=== PATIENT | male | born 2005 | race Caucasian/White ===

== ENCOUNTER 2025-04-25 18:06 | Emergency (ER) | payer OTHER, SELFPAY ==
[2025-04-25] VITALS (7 sets, daily range): BP systolic 126–139; BP diastolic 65–91; PULSE 102–113; RESP 12–22; TEMP 37.3; O2SAT 99–100
--- NOTE | ~2025-04-25 | XR_ITS ---
EXAMINATION: XR chest 1V portable 04/25/2025 20:08 INDICATION: Chest pain and palpitations PROCEDURE: AP portable chest COMPARISON: No prior studies for comparison. FINDINGS: The lungs are clear. The cardiomediastinal silhouette is within normal limits. There are no pleural effusions. There is no pneumothorax suspected. IMPRESSION: 1: NO ACUTE CARDIOPULMONARY DISEASE. Reviewed, dictated and finalized at location O.
--- NOTE | 2025-04-25 18:08 | ECG_ITS ---
Test Date: 2025-04-25 18:13:17 Measurements Intervals Forest Rate: 125 P: 61 SD: 112 QRS: 83 QRSD: 90 T: 41 QT: 303 QTc: 438 Interpretive Statements SINUS TACHYCARDIA ABNORMAL RHYTHM ECG No previous ECG available for comparison Electronically Signed On 04-26-2025 10:46:08 CDT by Giorgio Reid M.D.
--- OUTSIDE RECORDS SUMMARY | 2025-04-25 18:09 | XMS_ITS | Encounter Summary ---
Author Organization [facility] Address [address] [place] [address] Care Team Providers Care Hair Weaver Name Role Phone David Garcia MD Primary Care Provider [phone] Reason for Visit * Reason Onset Date Comments Appointment 04/24/2025 Encounter Details Date Type Department Care Team (Late st Contact Info) Description 04/24/2025 Telephone [facility] - General Dermatology [address], [facility] [address] [place] [address] Enrike Dinh, PAKoC [address] [facility] [address] [place] [address] Appointment Social History Tobacco Use Types Packs/Day Years Used Date Smoking Tobacco: Passive Smo ke Exposure - Never Smoker Smokeless Tobacco: Never Alcohol Use Standard Drinks/Week Comments No 0 (1 standard drink = 0.6 oz pur e alcohol) Sex and Gender Information Value Date Recorded Sex Assigned at Not on file Legal Sex Male 2:15 PM [employer] Gender Identity Not on file Sexual Orientation Not on file documented as of this encounter Miscellaneous Notes * Telephone Encounter - Noah Gold - 04/24/2025 12:00 PM CDT Patient called left a detailed voicemail for patient or mom (Hope) to give me a call back regarding scheduling patch testing. Noah Gold documented in this encounter Plan of Treatment Upcoming Encounters Date Type Department Care Team (Late st Contact Info) Description 07/03/2025 2:00 PM [employer] Office Visit [facility] - General Dermatology [address], [place] [address] [place] [address] Enrike Dinh PAKoC [address] [facility] [address] [place] [address] documented as of this encounter Visit Diagnoses Not on filedocumented in this encounter Care Teams Hair Weaver Relationship Specialty Start Date End Date David Garcia MD [address] [address] PCP - General 11/03/11 documented as of this encounter
--- OUTSIDE RECORDS SUMMARY | 2025-04-25 18:09 | XMS_ITS | Patient Health Record ---
Author Organization [facility] Address [address] [place] [address] Care Team Providers Care Sap Analyst Name Role Phone Joanne Edmond Primary Care Provider Allergies Allergen (clinical drug ingredient) Drug/Non Drug Allergy documented on EMR Reaction Allergy Type Onset Date Status cat dander allergenic extract / cat skin extract Cat Hair Extract shortness of breath Drug Allergy Active Reason For Referral Reason Client is looking fo r assistance with SSDI, we have disclosure to speak with momHope Randolph Diagnosis 1 Autism spectrum diso rder (F84.0) Diagnosis 2 Attention deficit hy peractivity disorder (ADHD), combined type (F90.2) Referral Organization [facility] Referring Provider First Name Joanne Referring Provider Last Name Mayito Referring Provider Speciality Psychiatry Referred Provider Specialty Operating Engineer ApprenticePlanning Management It Specialist Notes Form TE sent by pamela abreur: This client is a 19 year old male with autism spectrum and adhd. He has never been on disability before and mom is trying to help him get put on disability given the fact that client will have a very difficult time ever holding down a full- time job. She has tried to go through this process and is not having much luck. She stated she has a court date coming up about this and was wondering if anyone here had any resources or guidance for her on the process or how to go about finding him a employer relations representative. I told her that I could ask one of our navigators for any help they may be able to give. There is a release on file for mom that Levy has signed. Thanks. Clinical Notes Doreen Bailey 01/29/2025 10:35:52 AM >HN spoke to the mother of Levy. Levy has a release for his mother. They are due to attend court in the next 75 days to fight an appeal from disability. CAITANGELICA is texting Mrs. Dickson her contact number, and additionally is emailing Joellen at [facility] to see if they can complete an intake to assist the client during the appeal process. Email being sent to Joellen on 01-29-25 and hopefully CAIT will receive a response that the client is eligible for legal assistance for his last court case. Referral Priority Routine Medications Medication SIG (Take, Route, Fr equency, Duration) Notes Start Date End Date Status buPROPion HCl 75 MG 1 tablets Orally in AM; Duration: 30 days Active Strattera 80 MG 1 capsule in the mor facundo Orally Once a day; Duration: 30 days Ac tive cloNIDine HCl 0.1 MG 1 tablet Orally at bed; Duration: 30 days Active SEROquel 100 MG 1.5 tablet Orally at bed; Duration: 30 days Active Social History Tobacco Use: Social History Observation Description Date Details (start date - stop date) Never Smoker NA - NA Sex Assigned At : Social History Observation Description Sex Assigned At Male Tobacco Control (Standard) Question Answer Notes Tobacco use: Nonsmoker Problems Problem Type SNOMED Code ICD Code Onset Dates Problem Status W/U Status Risk Notes Problem Autism spectrum disorder (37008418) Autism spectrum disorder (F84.0) Active confirmed Problem Attention deficit hyperactivity disorder (151820751) Attention deficit hyperactivity disorder (ADHD), combined type (F90.2) Active confirmed Problem Overweight (502695185) Over weight (E66.3) Active confirmed Vital Signs Heart Rate 117 /min 03/12/2025 Temperature 97.9 degrees Fahrenheit 01/22/2025 Respiratory Rate 20 /min 03/12/2025 Blood pressure diastolic 72 mm Hg 03/12/2025 Oximetry 100 % 03/12/2025 Height 68 in 03/12/2025 Blood pressure systolic 124 mm Hg 03/12/2025 Weight 172.2 lbs 03/12/2025 BMI 26.18 kg/m2 03/12/2025 Encounters Encounter Location Date Provider Diagnosis [address] [place] [address] 07/23/2024 Joanne Edmond Body mass index (BMI ) pediatric, 5th percentile to less than 85th percentile for age Z68.52 ; Autism spectrum disorder F84.0 ; Nutritional counseling Z71.3 ; Exercise counseling Z71.82 and Attention deficit hyperactivity disorder (ADHD), combined type F90.[address] [place] [address] 10/22/2024 Joanne Edmond Body mass index (BMI ) pediatric, 5th percentile to less than 85th percentile for age Z68.52 ; Autism spectrum disorder F84.0 ; Nutritional counseling Z71.3 ; Exercise counseling Z71.82 and Attention deficit hyperactivity disorder (ADHD), combined type F90.[address] [place] [address] 11/26/2024 Joanne Edmond Body mass index (BMI ) pediatric, 5th percentile to less than 85th percentile for age Z68.52 ; Autism spectrum disorder F84.0 ; Nutritional counseling Z71.3 ; Exercise counseling Z71.82 and Attention deficit hyperactivity disorder (ADHD), combined type F90.[address] [address] 12/24/2024 Joanne Edmond Body mass index (BMI ) pediatric, 5th percentile to less than 85th percentile for age Z68.52 ; Autism spectrum disorder F84.0 ; Nutritional counseling Z71.3 ; Exercise counseling Z71.82 and Attention deficit hyperactivity disorder (ADHD), combined type F90.2 [address] [place] [address] 01/22/2025 Joanne Edmond Body mass index (BMI ) pediatric, 5th percentile to less than 85th percentile for age Z68.52 ; Autism spectrum disorder F84.0 ; Nutritional counseling Z71.3 ; Exercise counseling Z71.82 and Attention deficit hyperactivity disorder (ADHD), combined type F90.2 [facility] [place] [address] 02/12/2025 Joanne Edmond Over weight E66.3 ; Autism spectrum disorder F84.0 ; Nutritional counseling Z71.3 ; Exercise counseling Z71.82 and Attention deficit hyperactivity disorder (ADHD), combined type F90.2 [address] [place] [address] 03/12/2025 Joanne Edmond Over weight E66.3 ; Autism spectrum disorder F84.0 ; Nutritional counseling Z71.3 ; Exercise counseling Z71.82 and Attention deficit hyperactivity disorder (ADHD), combined type F90.[address] [address] 10/14/2024 Joanne Edmond [address] [address] 11/26/2024 Joanne Edmond [facility] [address] [place] [address] 12/18/2024 Joanne Edmond Attention deficit hyperactivity disorder (ADHD), combined type F90.[address] [place] [address] 01/01/2025 Joanne Edmond [address] [address] 01/16/2025 Joanne Edmond [facility] [address] [address] 02/04/2025 Joanne Edmond Assessments Encounter Date Diagnosis (ICD Code) Assessment Notes Treatment Notes Treatment Clinical Notes Section Notes 07/23/2024 Body mass index (BMI) pediatric, 5th percentile to less than 85th percentile for age (ICD-10 - Z68.52) 10/22/2024 Body mass index (BMI) pediatric, 5th percentile to less than 85th percentile for age (ICD-10 - Z68.52) 11/26/2024 Body mass index (BMI) pediatric, 5th percentile to less than 85th percentile for age (ICD-10 - Z68.52) 12/18/2024 Attention deficit hyperactivity disorder (ADHD), combined type (ICD-10 - F90.2) 12/24/2024 Body mass index (BMI) pediatric, 5th percentile to less than 85th percentile for age (ICD-10 - Z68.52) 01/22/2025 Body mass index (BMI) pediatric, 5th percentile to less than 85th percentile for age (ICD-10 - Z68.52) 02/12/2025 Over weight (ICD-10 - E66.3) 03/12/2025 Over weight (ICD-10 - E66.3) 02/12/2025 Autism spectrum disorder (ICD-10 - F84.0) 03/12/2025 Autism spectrum disorder (ICD-10 - F84.0) 01/22/2025 Autism spectrum disorder (ICD-10 - F84.0) 12/24/2024 Autism spectrum disorder (ICD-10 - F84.0) 11/26/2024 Autism spectrum disorder (ICD-10 - F84.0) 10/22/2024 Autism spectrum disorder (ICD-10 - F84.0) 07/23/2024 Autism spectrum disorder (ICD-10 - F84.0) 07/23/2024 Nutritional counseling (ICD-10 - Z71.3) 12/24/2024 Nutritional counseling (ICD-10 - Z71.3) 10/22/2024 Nutritional counseling (ICD-10 - Z71.3) 11/26/2024 Nutritional counseling (ICD-10 - Z71.3) 01/22/2025 Nutritional counseling (ICD-10 - Z71.3) 02/12/2025 Nutritional counseling (ICD-10 - Z71.3) 03/12/2025 Nutritional counseling (ICD-10 - Z71.3) 03/12/2025 Exercise counseling (ICD-10 - Z71.82) 02/12/2025 Exercise counseling (ICD-10 - Z71.82) 12/24/2024 Exercise counseling (ICD-10 - Z71.82) 11/26/2024 Exercise counseling (ICD-10 - Z71.82) 01/22/2025 Exercise counseling (ICD-10 - Z71.82) 10/22/2024 Exercise counseling (ICD-10 - Z71.82) 07/23/2024 Exercise counseling (ICD-10 - Z71.82) 07/23/2024 Attention deficit hyperactivity disorder (ADHD), combined type (ICD-10 - F90.2) 10/22/2024 Attention deficit hyperactivity disorder (ADHD), combined type (ICD-10 - F90.2) 11/26/2024 Attention deficit hyperactivity disorder (ADHD), combined type (ICD-10 - F90.2) 12/24/2024 Attention deficit hyperactivity disorder (ADHD), combined type (ICD-10 - F90.2) 01/22/2025 Attention deficit hyperactivity disorder (ADHD), combined type (ICD-10 - F90.2) 02/12/2025 Attention deficit hyperactivity disorder (ADHD), combined type (ICD-10 - F90.2) 03/12/2025 Attention deficit hyperactivity disorder (ADHD), combined type (ICD-10 - F90.2) 01/22/2025 Other Patient may self-administer their own medications or may self-administer their own oral medications per [place] Protocol. 02/12/2025 Other Patient may self-administer their own medications or may self-administer their own oral medications per [place] Protocol. 03/12/2025 Other Patient may self-administer their own medications or may self-administer their own oral medications per [place] Protocol. Plan Of Treatment Next Appt Details Provider Name:Joanne Edmond, 05/06/2025 11:00:00 AM, [address] [facility] , [place], [address], Insurance Providers Payer Name Payer Address Payer Phone Subscriber Number Group Number Insured Name Patient Relationship to Insured Coverage Start Date Coverage End Date [facility] Att Claims Department [address] [place] [address] [id number] Levy Espitia Self - patient is the insured 0 [facility] [address] [address] [place] [address] [id number] Levy Espitia Self - patient is the insured 5 8 Medical (General) History Medical History History ICD Code Asthma ADHD Autism spectrum disorder Surgical History Surgery Date(Month/Year) tonsils and adenoids removed 2010 Hospitalization History Reason Date(Month/Year) [facility] - behavioral issues 2007 [facility] - behavioral issues 2010 [facility] - behavioral issues 06/2015
--- OUTSIDE RECORDS SUMMARY | 2025-04-25 18:09 | XMS_ITS | Clinical Summary ---
Author Organization [facility] Address [address] [place] [address] Care Team Providers Care Deputy Fire Marshal Name Role Phone David Garcia MD Primary Care Provider [phone] Source Comments [facility],non-owned Affiliates and Associated Physician Practices is amultiple site organization consisting of ambulatory clinics and hospital sitesin [place], [place], [place] and [place]. This disclosure is being madepursuant to the Care Everywhere program and may not contain all information available regarding this patient. Last updated 18.[facility] Allergies No known active allergies Medications * This document contains information received from the source organization and may not represent a complete record from that organization. * Be aware that medications may not be up to date on this document. Alwaysverify current medications with the patient. OXcarbazepine (TRILEPTAL) 600 MG tabletIndication s:decreased to 200mg in june per mother Take 200 mg by mouth once daily Reasons: decreased to 200mg in june per mother Active QUEtiapine (SEROQUEL) 200 MG tablet Take 200 mg by mouth at bedtime 20 or 25mg seroquel in the morning as well per mother Active atomoxetine (STRATTERA) 40 MG capsule Take 40 mg by mouth every morning. Active montelukast (SINGULAIR) 5 MG chew tablet Take 1 Tab by mouth every evening. 30 Tab 5 3 Active Additional Information Patient not taking.Reported on 04/04/2025 fluticasone hfa 110 (FLOVENT HFA 110) 110 MCG/ACT inhaler Inhale 2 Puffs by mouth 2 times daily. 1 Inhaler 2 3 Active Spacer/Aero-Hold ing Chambers KIT Use 1 Device as directed. 1 Kit 0 4 Active albuterol HFA (PROVENTIL;HENRIETTA PAUL;PROAIR) 108 (90 BASE) MCG/ACT inhaler Inhale 4 Puffs by mouth every 4 hours as needed for Shortness of Breath, Wheezing or Cough 2 Inhaler 0 6 Active albuterol (PROVENTIL;HENRIETTA PAUL) (5 MG/ML) 0.5% nebulizer solution Inhale 0.5 mL by mouth every 4 hours as needed for Shortness of Breath or Wheezing 1 Box 0 6 Active buPROPion (Wellbutrin) 75 MG tablet 5 Active cloNIDine (Catapres) 0.1 MG tablet 5 Active fluocinonide (Lidex) 0.05 % solutionIndicati ons:Rash and other nonspecific skin eruption,Other seborrheic dermatitis Apply to affected scalp twice daily, avoid face. 30 days supply. 40 mL 3 5 Active ketoconazole (Nizoral) 2 % shampooIndicatio ns:Other seborrheic dermatitis Apply to wet hair and face, leave on for 3 minutes, then rinse; three times weekly. 30 days supply 120 mL 5 5 Active tacrolimus (Protopic) 0.1 % ointmentIndicati ons:Rash and other nonspecific skin eruption,Other seborrheic dermatitis Apply to affected skin two times daily on face, armpits, groin as needed. 30 days supply. 60 g 3 5 Active triamcinolone acetonide (Kenalog) 0.1 % ointmentIndicati ons:Rash and other nonspecific skin eruption Apply to affected area 2 times daily Use as needed. Avoid face, armpits, groin 80 g 2 5 Active Active Problems Problem Noted Date Diagnosed Date Asthma exacerbation 09/19/2012 Overview (09/28/2012): 7 yo male with h/o asthma presented with 1 day h/o wheezing and increased work of breathing. No history of fevers or sick contacts. Received continuous nebs x2 in ED in addition to Atrovent,and Orapred. Required additional O2 support. Admitted with albuterol treatment per [facility]. Flovent 44 BID continued on admission, Singulair daily and O2 as needed. Albuterol able to be spaced to Q4H without problems and weaned off O2 to RA. Flovent increased to 110 BID. Patient stable for discharge home with prescription for Flovent 110 and Prednisone 20mg BID to complete 5 day course. Asthma Education prior to discharge. Periodic limb movement disorder (PLMD) 2 Status asthmaticus 04/15/2012 Overview (04/15/2012): 6 yo male with h/o asthma presented with 1 day h/o cough, wheezing and inc work of breathing that began after new cat exposure. Received multiple continuous nebs in ED in addition to Atrovent, Mg, orapred and solumedrol, and several further hours in the ICU for total of 7 hour long continuous treatments. Reports daily appropriate Flovent use. Possibly allergic trigger vs environmental cigarette smoke exposure. Weaned well to every 4 hour albuterol treatments and remained with improved respiratory status by hospital day #2. Immuno caps for common Pediatric March profile sent to evaluate for allergies. Discharged home to continue albuterol every 4 hours x 1 day, then every 4 hours as needed. Complete 5 day total course of oral prednisone. Follow up with Skin Therapist within this week, and follow up made with Asthma center for May 01 at 8:00am. Cont home Flovent 44 mcg 2 puffs BID. CARLTON (obstructive sleep apnea) 03/14/2012 Overview (09/28/2012): Followed by sleep clinic and last seen 09/06/12. Nightly used of CPAP of 8 without problems, although last note from sleep clinic says pressure of 9. When mom asked about home CPAP setting, she stated pressure of 8. During admission we continued home CPAP with pressure of 8. S/P tonsillectomy and adenoidectomy 03/14/2012 Asthma 03/14/2012 Atypical pneumonia 09/26/2011 Overview (09/26/2011): With low-grade fever (100.8) overnight and increased yellowish sputum production, coarse breath sounds b/l. Given these findings and that patient appears to still be quite symptomatic despite >48h tx for asthma exacerbation, concern for atypical pneumonia. -Azithromycin x 5 days ADHD (attention deficit hyperactivity disorder) 09/24/2011 Overview (10/12/2011): Patient diagnosed with ADHD, ODD and OCD. He is followed by [facility] and psychiatrist Dr. Hearn at [facility]. Home medications are Strattera 18 mg every morning and 40 mg at bedtime, Trileptal 600 mg every morning and afternoon (started ~4mos ago). Behavior symptoms managed with current regimen. Hyponatremia on labs from OSH, which could be caused by Oxcarbazapine (Trileptal) however repeat BMP here showed normal sodium. Mom says Dr. Hearn has been following labs every few months. Resolved Problems Problem Noted Date Diagnosed Date Resolved Date Asthma with acute exacerbation 09/26/2011 03/14/2012 Overview (10/12/2011): 6 yo with hx asthma admitted for status asthmaticus; with hx cough, SOB and wheeze. No identified trigger. Possible nighttime sx 1-2x/week prior to this episode. With slow recovery, O2 requirement at night (last night down to low 80s while asleep). Concern for comorbid atypical pneumonia. Started on prednisone 2 mg/kg/day divided x5 days. Needs sleep apnea assessment 09/26/2011 03/14/2012 Overview (09/26/2011): Parents report consistent snoring, nighttime cough few times per week, and occasional sputtering at night related to possible apnea. +hx atopy. No daytime sleepiness however patient has significant behavioral issues. -refer for sleep study as outpatient once recovered from acute issues of this hospitalization Status asthmaticus 09/23/2011 2 Overview (09/25/2011): 6 yo with hx mild intermittent asthma admitted for status asthmaticus; with hx cough, SOB and wheeze. No identified trigger. Possible nighttime sx 1-2x/week prior to this episode. Continues with prolonged expiratory phase and diffuse wheezes, mild retractions at rest. Slight hypoxia overnight (~90%). Plan: - albuterol q4hr, monitor for improvement in work of breathing - O2 as needed to keep sats >92% - prednisone 2 mg/kg/day divided x5 days - Spot check pulse ox while awake - regular diet -start on inhaled corticosteroids upon d/c Encounters Date Type Department Care Team Description 04/24/2025 Telephone [facility] - General Dermatology [address], [address] [place] [address] Enrike Dinh PA-C Appointment 04/16/2025 8:30 AM CDT Clinical Support [facility] General Dermatology [address], [address] [place] [address] Visit for suture removal 04/16/2025 Travel 04/09/2025 Results Follow-Up [facility] General Dermatology [facility] [address] [place] [address] Enrike Dinh PA-C 04/04/2025 11:30 AM CDT Office Visit [facility] General Dermatology [facility], [address] [place] [address] Enrike Dinh PA-C Rash and other nonspecific skin eruption (Primary Dx) 04/04/2025 Travel 03/26/2025 11:00 AM CDT Office Visit [facility] General Dermatology [address], [address] [place] [address] Enrike Dinh PA-C Rash and other nonspecific skin eruption (Primary Dx); Other seborrheic dermatitis 03/26/2025 Travel 03/19/2025 Travel from Last 3 Months Family History Medical History Relation Name Comments Allergies Father Asthma Maternal Uncle Allergies Mother Anesthesia Reaction Neg Hx Bleeding Disorders Neg Hx Childhood Hearing Disorder Neg Hx Relation Name Status Comments Father Maternal Uncle Mother Social History Tobacco Use Types Packs/Day Years Used Date Smoking Tobacco: Passive Smo ke Exposure - Never Smoker Smokeless Tobacco: Never Alcohol Use Standard Drinks/Week Comments No 0 (1 standard drink = 0.6 oz pur e alcohol) Sex and Gender Information Value Date Recorded Sex Assigned at Not on file 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 Gender Identity Not on file Sexual Orientation Not on file Last Filed Vital Signs Vital Sign Reading Time Taken Comments Blood Pressure 106/90 12/09/2015 12:15 AM CDT Pulse 141 12/09/2015 12:15 AM CDT Temperature 36.7 C (98 F) 12/09/2015 12:15 AM CDT Respiratory Rate 22 12/09/2015 12:15 AM CDT Oxygen Saturation 100% 12/08/2015 10:11 PM CDT Inhaled Oxygen Concentration 100% 09/20/2012 8 :25 AM CNC MILL PROGRAMMER Weight 32.7 kg (72 lb 1.5 oz) 12/08/2015 6:38 PM CDT Height 142.5 cm (4' 8.1) 12/08/2015 6:43 PM CDT Body Mass Index 16.1 12/08/2015 6:38 PM CDT Plan of Treatment Upcoming Encounters Date Type Department Care Team (Late st Contact Info) Description 07/03/2025 2:00 PM CNC MILL PROGRAMMER Office Visit [facility] - General Dermatology [address], [facility] [address] [place] [address] Enrike Dinh PA-C [address] [facility] [address] [place] [address] Health Maintenance Due Date Last Done Comments HIV SCREENING 2019 HPV VACCINE (1 - Male 3-dose series) 2019 MENINGOCOCCAL (Group B) VACC INE SHARED DECISION-MAKING (1 of 2 - Standard) 2020 HEPATITIS C SCREENING 06/19/2022 DTAP/TDAP/TD VACCINES (1 - Tdap) 2023 HEPATITIS B VACCINE (1 of 3 - 19+ 3-dose series) 2023 PNEUMOCOCCAL VACCINE (1 of 2 - PCV) 2023 DEPRESSION SCREENING 08/21/2024 COVID-19 VACCINE (1 - 2023-2 5 season) 2025 INFLUENZA VACCINE (#1) 2025 ZOSTER VACCINE (1 of 2) 2054 HIB VACCINE Aged Out No longer eligi ble based on patient's age to complete this topic MENINGOCOCCAL GROUPS A/C/Y/W VACCINE Aged Out No longer eligible b ased on patient's age to complete this topic Procedures Procedure Name Priority Date/Time Associated Diagnosis Comments IL PUNCH BX SKIN EA SEP ADDL Routine 04/04/2025 12:02 PM CDT Rash and other nonspecific skin eruption IL PUNCH BX SKIN SINGLE LESION Routine 04/04/2025 12:02 PM CDT Rash and other nonspecific skin eruption DERMATOPATHOLOGY Routine 04/04/2025 11:5 3 AM CDT Rash and other nonspecific skin eruption from Last 3 Months Results * IL PUNCH BX SKIN SINGLE LESION, IL PUNCH BX SKIN EA SEP ADDL (04/04/2025 12:02 PM CDT) Narrative Enrike Dinh PA-C - 04/04/2025 12:02 PM CDT Enrike Dinh PA-C 04/04/2025 12:05 PM Derm - Punch Biopsy Date/Time: 04/04/2025 12:02 PM Performed by: Enrike Dinh PA-C Authorized by: Enrike Dinh PA-C Consent given by: patient Consent type: verbal Risks discussed with patient: bleeding, need for further testing/treatment, infection, scar formation, skin color change and non-diagnostic biopsy. Consent type: verbal Procedure details: Skin prep: isopropyl alcohol Anesthesia: lidocaine 1% with epi Location information Left forearm x 1 Left mid back x 1 Number of standard lesions: 2 Body area 1: Punch size: 4 mm Epidermal closure: 4-0 Nylon Total number of lesions: 2 Wound dressing: bandage and petrolatum EBL: less than 5 mL Complications: none Wound care discussed with patient? yes Specimen(s) sent to pathology Patient preferred contact method(s): phone and MyChart Enrike Dinh PA-C PROCEDURE/MINOR SURGICAL ORDERA BLES Final Result * DERMATOPATHOLOGY (Specimen Count = 2) (04/04/2025 11:53 AM CDT) Case Report Dermatopathology Report Case: [id number] Authorizing Provider: Enrike Dinh PA-C Collected: 04/04/2025 11:53 AM Ordering Location: [facility] - Received: 04/04/2025 11:53 AM General Dermatology Pathologist: González Diallo MD Specimens: A) - Skin, Left forearm B) - Skin, Left mid back 4:55 PM CDT DERMATOPATHOLOGY LABORATORY Final Diagnosis Specimen A. SKIN, Left forearm: SPONGIOTIC DERMATITIS WITH EOSINOPHILS SUPPURATIVE FOLLICULITIS WITH YEAST FORMS (L30.8) (see microscopic description and comment) Specimen B. SKIN, Left mid back: PSORIASIFORM DERMATITIS WITH RARE EOSINOPHILS INTRACORNEAL BACTERIA AND YEAST FORMS (L44.8) (see microscopic description and comment) 4:55 PM CDT DERMATOPATHOLOGY LABORATORY at 1655 CDT Clinical History A-B: ACD vs Other Eczema, Doubt PRP vs CTCL 4:55 PM CDT DERMATOPATHOLOGY LABORATORY Gross Description Specimen A: Received is one formalin filled container labeled with the patient's name and designated Left forearm. The specimen consists of a punch biopsy measuring 4x4x3 mm. Jar 0. Specimen B: Received is one formalin filled container labeled with the patient's name and designated Left mid back. The specimen consists of a punch biopsy measuring 4x4x4 mm. Jar 0. 4:55 PM CDT DERMATOPATHOLOGY LABORATORY Microscopic Description Specimen A. SKIN, Left forearm: There is focal parakeratosis and spongiosis. In the dermis there is a mainly superficial perivascular lymphohistiocytic inflammatory infiltrate with eosinophils. Sections show rupture of the follicular infundibulum, with numerous neutrophils. IL-36 demonstrates diffuse moderate staining of the upper epidermis. GMS stain highlights yeast forms within the follicle. COMMENT: The histological differential diagnosis includes a contact dermatitis, an eczematous drug eruption, psoriasis, and pityrosporum folliculitis. Specimen B. SKIN, Left mid back: There is psoriasiform hyperplasia of the epidermis with focal parakeratosis and spongiosis. There is a superficial, mainly lymphohistiocytic inflammatory infiltrate with rare eosinophils. IL-36 demonstrates diffuse moderate staining of the upper epidermis. GMS stain highlights yeast forms and bacteria within the stratum corneum. COMMENT: The histological differential diagnosis includes early / partially treated psoriasis and a chronic eczematous dermatitis including contact dermatitis, as well as candidal infection, pityrosporum infection, bacterial impetigo. Consider obtaining a culture if clinically indicated. 08/19/202 5 4:55 PM CDT DERMATOPATHOLOGY LABORATORY Disclaimer An external and internal positive and negative controls are appropriate for the histochemical, immunohistochemical and immunofluorescence stain(s) in this case (if any), except where stated explicitly. The performance characteristics of the stain(s) cited in this report were developed and its performance characteristic determined by the Dermatopathology Laboratory at [facility], directed by Dr. Suzanne Diallo. These tests need not be, and therefore are not, approved by the [place] Food and Drug Administration. The tests are used for clinical purposes. Billing Codes Specimen Charges Stain Charges 88349 [id number] 1 1 [id number] 1 1 1 1 5 4:55 PM CDT DERMATOPATHOLOGY LABORATORY Embedded Images 5 4:55 PM CDT DERMATOPATHOLOGY LABORATORY Pathology/Cytology TISSUE SPECIMEN FROM SKIN / Unknown Collection / Unknown 04/04/2025 11:53 AM CDT 04/04/2025 11:53 AM CDT Comment:Enrike Dinh PA-C Miscellaneous samples (specimen) TISSUE SPECIMEN FROM SKIN / Unknown 04/04/2025 11:53 AM CDT 04/04/2025 11:53 AM CDT Comment:Enrike Dinh PA-C Enrike Dinh PA-C LAB - PATHOLOGY/CYTOLOGY ORDERA BLES Final Result DERMATOPATHOLOGY LABORATORY [facility] Department of Dermatology [address], [address] [phone] from Last 3 Months Insurance [employer] [facility] Care Teams Deputy Fire Marshal Relationship Specialty Start Date End Date David Garcia MD [facility] [address] [place] [address] PCP - General 11/03/11
--- OUTSIDE RECORDS SUMMARY | 2025-04-25 18:09 | XMS_ITS | Encounter Summary ---
Author Organization [facility] Address [address] [facility] [place] [address] Care Team Providers Care Rn Appeals Name Role Phone David Garcia MD Primary Care Provider [phone] Encounter Details Date Type Department Care Team (Late Contact Info) Description 04/09/2025 Results Follow-Up [facility] - General Dermatology [address], [address] [address] Enrike Dinh, PA-C [facility] [address] Social History Tobacco Use Types Packs/Day Years Used Date Smoking Tobacco: Passive Smo ke Exposure - Never Smoker Smokeless Tobacco: Never Alcohol Use Standard Drinks/Week Comments No 0 (1 standard drink = 0.6 oz pur e alcohol) Sex and Gender Information Value Date Recorded Sex Assigned at Not on file 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 Gender Identity Not on file Sexual Orientation Not on file documented as of this encounter Plan of Treatment Upcoming Encounters Date Type Department Care Team (Late Contact Info) Description 07/03/2025 2:00 PM ASSOCIATE PROFESSOR OF ART HISTORY Office Visit [facility] - General Dermatology [address], [address] [address] Enrike Dinh PAKoC [address] [address] documented as of this encounter Visit Diagnoses Not on filedocumented in this encounter Care Teams Rn Appeals Relationship Specialty Start Date End Date David Garcia MD [address] [facility] [address] [place] [address] PCP - General 11/03/11 documented as of this encounter
--- NOTE | 2025-04-25 19:57 | ED_ITS ---
HPI - Arrhythmia/Palpitations General Chief Complaint: Arrhythmia/Palpitations Stated Complaint: chest pain Time Seen by Provider: 04/25/25 19:52 Source: patient and family (Mother) Mode of arrival: ambulatory Limitations: no limitations History of Present Illness HPI narrative: Patient with history autism and anxiety presents with report of left-sided chest pain. He describes a constant pressure sensation but with intermittent pinching pain. His symptoms started a few days ago shortly after the of his great grandmother who lived in the house with him in his family due to her Alzheimers. He was very close with her. Patient has a history of sleep apnea that reportedly persisted even after he had tonsillectomy and adenoidectomy. He is supposed to use a CPAP machine but is not compliant. He also has a history of asthma but states that the shortness of breath that accompanied the symptoms felt different. In general his asthma is well controlled and he only has to use the albuterol inhaler occasionally, primarily it is seasonal a particularly related to temperature changes. No edema. He states he feels like his heart was beating out of his chest. He does not have any other underlying cardiac issues and has never seen a service delivery supervisor. This has never happened before. Denies any sick contacts. For his autism and anxiety he has been on several medications for several years although there have been some medication changes recently. He was started on Wellbutrin 2 months ago which seem to increase his anxiety however the anxiety medications he had previously been on are not covered by insurance. He has been nauseated but without vomiting. Denies any fevers, chills, cough. Denies any recreational drug use. Not on anticoagulation. Denies alcohol use. Cardiac risk factors HTN: No HLD: No DM: No Obese: No Smoker: No Personal history MD/TIA/CVA: No Fam Hx MD in first degree relative <65yo: No (but yes in maternal grandmother though had congenital abnormality) Related Data Allergies Allergy/AdvReac Type Severity Reaction Status Date / Time No Known Allergies Allergy Mild Verified 04/25/25 18:08 [facility] Past Medical History Medical History Noncompliance with CPAP treatment Sleep apnea Seasonal asthma Anxiety Autism Surgical History Surgical History H/O adenoidectomy S/P tonsillectomy Family History Family History Grandparent Acute myocardial infarction <65 (first one in 20s) Congenital heart anomaly Grandparent , 2024 Alzheimer disease Social History Social History Smoking status: Never smoker Alcohol intake: never Substance use: never Living arrangements: with family Additional living arrangements comments: mother Exam 2 Narrative: GENERAL: Well-appearing, well-nourished, and in no acute distress. HEAD: Normocephalic, atraumatic. EYES: Non injected, non icteric ENT: Nares clear, no rhinorrhea or epistaxis. Gross auditory acuity intact. NECK: Supple. No meningismus. CHEST: Speaking in full sentences. No respiratory distress. Lungs clear on auscultation without appreciable wheezes or crackles. Nonlabored. Not diminished. HEART: Tachycardic rate and rhythm. ABDOMEN: Soft, nondistended. No rigidity or guarding. Not peritoneal EXTREMITIES: Normal range of motion. No lower extremity edema bilaterally. SKIN: Warm, dry, no rash. NEURO: No focal deficits. Alert and oriented. Answering questions. Following commands. Normal speech without aphasia or dysarthria. PSYCH: Normal mood and affect. Course Vital Signs Vital signs: Vital Signs Temperature 99.1 F 04/25/25 18:18 Pulse Rate 102 H 04/25/25 18:18 Respiratory Rate 22 H 04/25/25 18:18 Blood Pressure 134/80 04/25/25 18:18 Pulse Oximetry 100 04/25/25 18:18 Oxygen Delivery Room Air 04/25/25 18:18 Temperature 99.1 F 04/25/25 18:18 Pulse Rate 106 H 04/25/25 23:12 Respiratory Rate 16 04/25/25 23:12 Blood Pressure 126/83 04/25/25 23:12 Pulse Oximetry 100 04/25/25 23:12 Oxygen Delivery Room Air 04/25/25 19:31 MDM - Arrhythmia/Palpitations MDM Narrative Medical decision making narrative: Patient presents report of left-sided chest pressure and feeling like his heart was beating out of his chest. History of autism and anxiety with home medication changes as well as recent of his great grandmother who lived with his family and with whom he was very close. In the emergency department he is afebrile vital signs notable for mild tachycardia and mild tachypnea. During assessment, patient's heart rate is in the 110s to low 120s. For this reason will order IV fluids in addition to dimer and TSH. Will check electrolytes and give ondansetron and ASA. HEART SCORE History 2 highly suspicious 1 moderately suspicious 0 slightly suspicious History score [address] depression/elevation not due to LBBB, LVH, or digoxin [address] depression but LBBB, LVH, nonspecific repolarization changes 0 normal ECG score 0 Age 2 >/= 65 1 45-64 0 <45 Age score 0 Risk factors (HTN, hypercholesterolemia, DM, obesity with BMI >30, current smoker or cessation </=3mo), positive fam hx with parent or sibling with CVD before age 65, atherosclerotic disease (prior MD, PCI/CABG, CVA/TIA, or peripheral arterial disease) 2 >/= 3 risk factors or history of atherosclerotic dz 1 - 1-2 risk factors 0 no known risk factors Risk factor score 0 Initial Troponin 2 >3 times normal limit 1 1-3 times normal limit 0 less than or equal to normal limit Troponin score 0 Total HEART Score 0 Dimer normal. Will not proceed with pursuing further workup for PE. Will not obtain repeat troponin given symptoms have been going on for >24 hours. 2nd L Iv fluids ordered. Patient's heart rate remains variable, but improved to 108 on my bedside assessment (which had also been close to initially documented heart rate). Discussed his unremarkable workup but Advised follow-up with primary care physician and prescribed [id number] analgesic medication. Patient in a understanding, feel comfortable with the plan. Otherwise stable for discharge. Differential Diagnosis Differential diagnosis: Likely palpitations, anxiety, sinus tachycardia, artial fibrillation, artial flutter, ventricular premature beats, supraventricular tachycardia, ventricular tachycardia, WPW and other (Medication side effect, thyroid dysfunction, electrolyte abnormalities, PE; acute viral syndrome; considered asthma exacerbation) Lab Data Attestation: I reviewed the patient's lab results. 04/25/25 20:16 04/25/25 20:16 Labs: Lab Results 04/25/25 04/25/25 Range/Units 20:16 20:26 WBC 6.4 (4.5-10.0) K/mm3 RBC 5.71 (4.6-6.20) M/mm3 Hgb 16.0 (14.0-18.0) g/dL Hct 47.1 (42.0-52.0) % MCV 82.5 (80-100) fl MCH 28.0 (26-34) pg MCHC 34.0 (32-36) g/dl RDW 12.8 (11.5-14.5) % Plt Count 283 (150-375) k/mm3 MPV 9.5 (7.4-10.4) fl Immature Gran % (Auto) 0.3 (0-0.5) % Neut % (Auto) 56.5 (45.5-73.1) % Lymph % (Auto) 21.8 (18.3-44.2) % [place] % (Auto) 8.6 H (2.6-8.5) % Eos % (Auto) 11.7 H (0-4.4) % Baso % (Auto) 1.1 (0.2-1.2) % Lymph # (Auto) 1.40 (0.9-3.2) K/mm3 [place] # (Auto) 0.6 (0.1-0.6) K/mm3 Eos # (Auto) 0.8 H (0-0.3) K/mm3 Baso # (Auto) 0.1 (0.0-0.1) K/mm3 Abs Immat Gran (auto) 0.02 (0.00-0.031) K/mm3 Absolute Neuts (auto) 3.6 (1.3-6.7) K/mm3 Absolute Nucleated RBC 0.000 (0.0-0.012) K/mm3 Nucleated RBC % 0.0 (0.0-0.2) % D-Dimer < 0.27 (<0.48) ug/mL Sodium 136 L (137-145) mmol/L Potassium 4.3 (3.4-5.0) mmol/L Chloride 99 (98-107) mmol/L Carbon Dioxide 28 (22-30) mmol/L Anion Gap 9 (4-12) mmol/L BUN 12 (9-20) mg/dL Creatinine 0.90 (0.7-1.3) mg/dL Estim Creat Clear Calc 111 ml/min Estimated GFR > 60 (59 - ) Glucose 93 (65-110) mg/dL Calcium 9.5 (8.4-10.2) mg/dL Magnesium 2.4 H (1.6-2.3) mg/dL Total Bilirubin 0.9 (0.2-1.3) mg/dL AST 36 (17-59) U/L ALT 29 (6-50) U/L Alkaline Phosphatase 65 (38-126) U/L Troponin I < 0.012 (0.000-0.034) ng/mL Total Protein 8.9 H (6.3-8.2) g/dL Albumin 5.0 (3.5-5.1) g/dL Lipase 72 (23-300) U/L TSH 1.110 (0.465-4.680) uIU/mL Influenza A (RT-PCR) Negative (Negative) Influenza B (RT-PCR) Negative (Negative) RSV (RT-PCR) Negative (Negative) SARS-CoV-2 RNA (RT-PCR) Negative (Negative) Imaging Data Radiologist's impression: Impressions Chest X-Ray 04/25/25 20:16 IMPRESSION: 1: NO ACUTE CARDIOPULMONARY DISEASE. ECG Data EKG #1: Attestation: I personally reviewed and interpreted this ECG as follows: ECG completion date: 04/25/25 ECG completion time: 18:13 Interpretation: Sinus tachycardia at a rate of 125 beats per minute. AZ interval 112 milliseconds. QRS 90. QT/QTC 303/438. Good R-wave progression across the precordial leads. In no T-wave inversions. Normal axis. Discharge Plan Discharge Clinical Impression: Chest pain, Racing heart beat Patient Disposition: Home Condition: Stable Instructions: Antibiotic Form, Chest Pain (DC), Heart Palpitations (DC) Additional Instructions: Acetaminophen/Tylenol (maximum 4000 mg per day) is safe to take with NSAIDs (ibuprofen/Motrin) for pain relief. Follow-up with your primary care physician if symptoms persist. Like we discussed, they may recommend an event/Holter monitor, cardiology referral, additional workup, etc. return to the emergency department with any new/worsening symptoms. Patient Language: Divehi Prescriptions: New ibuprofen 600 mg tablet 600 mg PO TID PRN (Reason: pain) Qty: 20 0RF acetaminophen 500 mg capsule 1,000 mg PO Q6H PRN (Reason: pain) Qty: 20 0RF Follow-up/Referrals: Jose,MD David [Primary Care Provider, Unknown] Stand Alone Forms: Work/School Release IP Time of Disposition: 22:21
[2025-04-25] MEDS: SODIUM CHLORIDE 0.9% IV 1,000 ML 999 ML IV CONT ×2 (20:18→21:44)
[2025-04-25] MEDS: ONDANSETRON INJ 4 MG/2 ML VIAL IV PUSH (20:18)
[2025-04-25 20:31] LABS: Hematocrit 47.1 % (42.0-52.0); Hemoglobin 16.0 g/dL (14.0-18.0); Immature Granulocyte Percent A 0.3 % (0-0.5); Lymphocytes Absolute Auto 1.40 K/mm3 (0.9-3.2); Mean Corpuscular HGB Conc 34.0 g/dl (32-36); Mean Corpuscular Hemoglobin 28.0 pg (26-34); Mean Corpuscular Volume 82.5 fl (80-100); Nucleated Red Blood Cells Absolute Auto 0.000 K/mm3 (0.0-0.012); Nucleated Red Blood Cells Perc 0.0 % (0.0-0.2); Platelet Count Result 283 k/mm3 (150-375); Red Blood Count 5.71 M/mm3 (4.6-6.20); White Blood Count 6.4 K/mm3 (4.5-10.0)
[2025-04-25 20:46] LABS: Alanine Aminotransferase 29 U/L (6-50); Albumin Level 5.0 g/dL (3.5-5.1); Alkaline Phosphatase 65 U/L (38-126); Anion Gap 9 mmol/L (4-12); Aspartate Amino Transferase 36 U/L (17-59); Bilirubin,Total 0.9 mg/dL (0.2-1.3); Blood Urea Nitrogen 12 mg/dL (9-20); Calcium 9.5 mg/dL (8.4-10.2); Carbon Dioxide 28 mmol/L (22-30); Chloride 99 mmol/L (98-107); Estimated CRCL calculation 111 ml/min; Estimated Glomerular Filt Rate > 60; Glucose 93 mg/dL (65-110); Lipase 72 U/L (23-300); Magnesium 2.4 mg/dL (1.6-2.3); Potassium 4.3 mmol/L (3.4-5.0); Sodium 136 mmol/L (137-145); Total Protein 8.9 g/dL (6.3-8.2)
--- OUTSIDE RECORDS SUMMARY | 2025-04-25 20:47 | XMS_ITS | Encounter Summary ---
Author Organization [facility] Address [address] [place] [address] Care Team Providers Care B2B Sales Representative Name Role Phone David Garcia MD Primary Care Provider [phone] Encounter Details Date Type Department Care Team (Late Contact Info) Description 04/09/2025 Results Follow-Up [facility] - General Dermatology [address], [address] [address] Enrike Dinh, PA-C [facility] [address] Social History Tobacco Use Types Packs/Day Years Used Date Smoking Tobacco: Passive Smo ke Exposure - Never Smoker Smokeless Tobacco: Never Alcohol Use Standard Drinks/Week Comments No 0 (1 standard drink = 0.6 oz pur e alcohol) Sex and Gender Information Value Date Recorded Sex Assigned at Not on file 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 Gender Identity Not on file Sexual Orientation Not on file documented as of this encounter Plan of Treatment Upcoming Encounters Date Type Department Care Team (Late Contact Info) Description 07/03/2025 2:00 PM FURNITURE SALESPERSON Office Visit [facility] - General Dermatology [address], [address] [address] Enrike Dinh PAKoC [address] [address] documented as of this encounter Visit Diagnoses Not on filedocumented in this encounter Care Teams B2B Sales Representative Relationship Specialty Start Date End Date David Garcia MD [address] [facility] [address] [place] [address] PCP - General 11/03/11 documented as of this encounter
--- OUTSIDE RECORDS SUMMARY | 2025-04-25 20:47 | XMS_ITS | Encounter Summary ---
Author Organization [facility] Address [address] [place] [address] Care Team Providers Care Insurance Agent Name Role Phone David Garcia MD Primary Care Provider [phone] Reason for Visit * Reason Onset Date Comments Appointment 04/24/2025 Encounter Details Date Type Department Care Team (Late st Contact Info) Description 04/24/2025 Telephone [facility] - General Dermatology [address], [facility] [address] [place] [address] Enrike Dinh, PAKoC [address] [facility] [address] [place] [address] Appointment Social History Tobacco Use Types Packs/Day Years Used Date Smoking Tobacco: Passive Smo ke Exposure - Never Smoker Smokeless Tobacco: Never Alcohol Use Standard Drinks/Week Comments No 0 (1 standard drink = 0.6 oz pur e alcohol) Sex and Gender Information Value Date Recorded Sex Assigned at Not on file 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
--- OUTSIDE RECORDS SUMMARY | 2025-04-25 20:47 | XMS_ITS | Clinical Summary ---
Author Organization [facility] Address [address] [place] [address] Care Team Providers Care Apprentice Embalmer Name Role Phone David Garcia MD Primary Care Provider [phone] Source Comments [employer],non-owned Affiliates and Associated Physician Practices is amultiple site organization consisting of ambulatory clinics and hospital sitesin [place], [place], [place] and [place]. This disclosure is being madepursuant to the Care Everywhere program and may not contain all information available regarding this patient. Last updated 05/11/18.[employer] Allergies No known active allergies Medications * [...] course of oral prednisone. Follow up with Health Policy Nurse within this week, and follow up made [...] OCD. He is followed by [facility] [place] and psychiatrist Dr. Hearn at [facility]. Home medications are Strattera 18 mg every [...] Dermatology [address], [address] [place] [address] Enrike Dinh PA-C Appointment 04/16/2025 8:30 AM CDT Clinical Support [facility] General Dermatology [address], [address] [place] [address] Visit for suture removal 04/16/2025 Travel 04/09/2025 Results Follow-Up [facility] General Dermatology [facility] [address], [address] [place] [address] Enrike Dinh PA-C 04/04/2025 11:30 AM CDT Office Visit [facility] General Dermatology [facility], [address] [place] [address] Enrike Dinh PA-C Rash and other nonspecific skin eruption (Primary Dx) 04/04/2025 Travel 03/26/2025 11:00 AM CDT Office Visit [facility] General Dermatology [address], [address] [place] [address] Enrike Dinh PA-C Rash and [...] on file Legal Sex Male 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[employer]PER[employer] Gender Identity Not on file Sexual Orientation [...] Oxygen Concentration 100% 09/20/2012 8 :25 AM SUPERVISOR [employer] Weight 32.7 kg (72 lb 1.5 oz) 12/08/2015 6:38 PM CDT Height 142.5 cm (4' 8.1) 12/08/2015 6:43 PM CDT Body Mass Index 16.1 12/08/2015 6:38 PM CDT Plan of Treatment Upcoming Encounters Date Type Department Care Team (Late st Contact Info) Description 07/03/2025 2:00 PM SUPERVISOR TRA[employer]PERATIONS Office Visit [facility] - General Dermatology [address], [facility] [address] [place] [address] Enrike Dinh PA-C [address] [facility] [address] [place] [address] Health Maintenance Due Date Last [...] Procedure Name Priority Date/Time Associated Diagnosis Comments NE PUNCH BX SKIN EA SEP ADDL Routine 04/04/2025 12:02 PM CDT Rash and other nonspecific skin eruption NE PUNCH BX SKIN SINGLE LESION Routine 04/04/2025 12:02 PM CDT Rash and other nonspecific skin eruption DERMATOPATHOLOGY Routine 04/04/2025 11:5 3 AM CDT Rash and other nonspecific skin eruption from Last 3 Months Results * NE PUNCH BX SKIN SINGLE LESION, NE PUNCH BX SKIN EA SEP ADDL (04/04/2025 [...] AM CDT) Case Report Dermatopathology Report Case: [id number] Authorizing Provider: Enrike Dinh PA-C Collected: 04/04/2025 11:53 AM Ordering Location: [facility] - Received: 04/04/2025 11:53 AM [...] characteristic determined by the Dermatopathology Laboratory at [facility], directed by Dr. Suzanne Diallo. These tests need not be, and therefore are not, approved by the [place] Food and Drug Administration. The tests are used for clinical purposes. Billing Codes Specimen Charges Stain Charges [id number] [id number] 1 1 [id number] 1 1 1 1 5 4:55 PM [...] PATHOLOGY/CYTOLOGY ORDERA BLES Final Result DERMATOPATHOLOGY LABORATORY [facility] Department of Dermatology [address] [phone] from Last 3 Months Insurance [employer] HEALTH [employer]AN [facility] Care Teams Apprentice Embalmer Relationship Specialty Start Date End Date David Garcia MD [facility] [facility] [address] [place] [address] PCP - General 11/03/11
[2025-04-25 20:57] LABS: Troponin I < 0.012 ng/mL (0.000-0.034)
[2025-04-25 21:08] LABS: Influenza A QL RT-PCR Negative (Negative); Influenza B QL RT-PCR Negative (Negative); RSV RNA, RT-PCR Negative (Negative); SARS-CoV-2 RNA PCR Negative (Negative)
[2025-04-25 21:14] LABS: Thyroid Stimulating Hormone 1.110 uIU/mL (0.465-4.680)
[2025-04-25] MEDS: ACETAMINOPHEN 500 MG TABLET 1000 MG PO (22:58)
[2025-04-25] MEDS: KETOROLAC 15 MG/ML VIAL (*BKC) IV PUSH (22:59)
== END 2025-04-25 23:15 | disposition home or self-care (01) ==
PROVIDERS: Emergency Provider Student in an Organized Health Care Education/Training Program; PCP Pediatrics
DX: R07.89 Other chest pain (principal); R00.0 Tachycardia, unspecified; Z20.822 Contact with and (suspected) exposure to COVID-19; F84.0 Autistic disorder; F41.9 Anxiety disorder, unspecified; G47.30 Sleep apnea, unspecified
CPT/HCPCS: 36415; 71045; 80053; 83690; 83735; 84443; 84484; 85025; 85380; 87637; 93005; 96361; 96374; 96375; 99284; A9270; J1885; J2405; J7030